=== PATIENT | male | born 1975 | race Two or more races ===

== ENCOUNTER 2018-06-02 14:34 | Emergency (ER) | payer OTHER ==
[~2018-06-02] VITALS: Ht 167.6 cm; Wt 79.4 kg
--- NOTE | 2018-06-02 14:34 | NUR ---
ARRIVAL PATIENT ARRIVED VIA EMS WITH COMPLAINTS OF SEVERE ABDOMINAL PAIN PT HAS HISTORY OF KIDNEY STONES AND STATES "IT FEELS LIKE THAT AGAIN" 18 GAUGE IV TO LEFT HAND INITIATED IN ROUTE BY EMS PT HAD 150MCG OF FENTYNL ON AMBULANCE PRIOR TO ARRIVAL PT AMBULATED TO BED AND PLACED ON MONITOR
[2018-06-02 14:42] VITALS: BP 157/92
[2018-06-02] MEDS ORDERED: ZOFRAN IV STA (14:53)
[2018-06-02] MEDS ORDERED: NS 1000ML 1,000 ML IV ONE (15:00)
--- NOTE | 2018-06-02 15:06 | ER.PDOC ---
General Chief Complaint: Abdomen Pain Stated Complaint: ABDOMINAL PAIN Time seen by MD: 14:55 Source: patient, EMS Exam Limitations: no limitations History of Present Illness Initial Comments Pt with abdominal pain starting suddenly this morning, nausea, vomiting, radiating to back, no urinary symptoms Timing/Duration: 4-6 hours Severity/Quality: severe, cramping, sharpness Radiation: epigastric, flank Associated Symptoms: nausea/vomiting Exacerbated by: movements Relieved By: nothing Vital Signs First Vital Signs Date Time Temp Pulse Resp B/P (MAP) Pulse Ox O2 Delivery O2 Flow Rate FiO2 06/02/18 14:38 98.1 62 18 98 Room Air 98.1 06/02/18 14:42 157/92 (113) Last Vital Signs Date Time Temp Pulse Resp B/P (MAP) Pulse Ox O2 Delivery O2 Flow Rate FiO2 06/02/18 14:42 98.7 60 18 157/92 (113) 98 Room Air 98.7 Social History Smoking: greater than 1 pack/day Drug Use: none Constitutional: no symptoms reported EENTM: no symptoms reported Respiratory: no symptoms reported Cardiovascular: no symptoms reported Gastrointestinal: see HPI Genitourinary: no symptoms reported Musculoskeletal: no symptoms reported Skin: no symptoms reported Psychiatric/Neurological: no symptoms reported Endocrine: no symptoms reported Hematologic/Lymphatic: no symptoms reported Physical Exam General Appearance: Anxious HEENT: PERRL/EOMI, Normal ENT Inspection, TMs Normal, Pharynx Normal Neck: Non-Tender, Full Range of Motion, Supple, Normal Inspection Respiratory: chest non-tender, lungs clear, normal breath sounds, no respiratory distress, no accessory muscle use Cardiovascular: Normal Peripheral Pulses, Regular Rate, Rhythm, No Edema, No Gallop, No JVD, No Murmur Gastrointestinal: Normal Bowel Sounds, No Organomegaly, No Pulsatile Mass, Tenderness (epigastrium) Back: CVA Tenderness (R), CVA Tenderness (L) Extremities: Normal Range of Motion, Non-Tender, Normal Inspection, No Pedal Edema, No Calf Tenderness, Normal Capillary Refill, Pelvis Stable Neurologic/Psychiatric: automatic maintainer II-XII NML as Tested, No Motor/Sensory Deficits, Alert, Normal Mood/Affect, Oriented x 3 Skin: Normal Color, Warm/Dry Lymphatic: No Adenopathy Results/Orders Results/Orders Administered Medications Medications (Trade) Dose Ordered Sig/Victorina Route PRN Reason Start Time Stop Time Status Last Admin Dose Admin Sodium Chloride 1,000 ml @ 1,200 mls/hr Q50M ONCE IV 06/02/18 15:00 06/02/18 15:49 06/02/18 14:56 Ondansetron HCl (Zofran) 4 mg STAT STAT IV 06/02/18 14:53 06/02/18 14:55 DC 06/02/18 14:56 Course Vitals & review Data Vital Sign - Last 24 Hours 06/02/18 06/02/18 06/02/18 14:38 14:38 14:42 Temp 98.1 98.7 98.7 98.1 98.7 98.7 Pulse 62 60 60 Resp 18 18 18 B/P (MAP) 157/92 (113) Pulse Ox 98 98 O2 Delivery Room Air Room Air Departure Time of Disposition: 16:10 Disposition: 02 XFER SHT-TRM HOSP Impression: Primary Impression: Gastric bleeding Additional Impression: Epigastric abdominal pain Condition: Stable Hospital Course stable Patient Instructions: Abdominal Pain Referrals: PCP,UNKNOWN (PCP) PRIMARY CARE PROVIDER Duration or Time Spent with Pa: 25 Problem Qualifiers PARI BRICEÑO MD Jun 02, 2018 15:06
[2018-06-02] MEDS ORDERED: ZOFRAN ONE (15:12)
[2018-06-02] MEDS ORDERED: PHENERGAN ONE (15:13)
[2018-06-02 15:15] LABS: BASOPHIL % 0.1 % (0.0-0.2); HEMOGLOBIN 15.7 g/dL (13.9-16.3); LYMPHOCYTES # 1.1 10^3/uL (1.0-4.8); LYMPHOCYTES % 6.8 % (24.0-44.0); MEAN CELL HGB CONCENTRATION 34.4 g/dL (33-37); MEAN CORP VOLUME 87.2 fL (78-100); MEAN PLATELET VOLUME 9.7 fL (7.8-11.0); MONOCYTES # 0.5 10^3/uL (0.3-0.8); MONOCYTES % 3.1 % (5.0-12.0); NEUTROPHIL # 14.8 10^3/uL (1.8-7.7); NEUTROPHILS % 89.8 % (41.0-85.0); RED CELL DISTRIBUTION WIDTH 13.1 % (11.5-14.5); WHITE BLOOD CELL 16.5 10^3/uL (4.5-11.0)
[2018-06-02] MEDS ORDERED: PHENERGAN IV STA (15:15)
[2018-06-02] MEDS ORDERED: PROTONIX IV IV ONE (15:16)
[2018-06-02] MEDS ORDERED: PROTONIX IV IV STA (15:18)
--- NOTE | 2018-06-02 15:20 | NUR ---
HEMATEMESIS NOTED DARK COFFEE COLORED VOMIT SPECIMEN COLLECTED AND TAKEN TO LAB
--- NOTE | 2018-06-02 15:25 | DIREP ---
PROCEDURE:CT ABDOMEN/PELVIS W/O CONTRAST COMPARISON:None. INDICATIONS:Abdominal pain TECHNIQUE:Axial images were created through the abdomen and pelvis without intravenous contrast material. No oral contrast was administered. Sagittal and coronal reconstructions were performed from source images. FINDINGS: LUNG BASES:Normal. No visible pulmonary or pleural disease. A small hiatal hernia is noted. LIVER:Normal. No significant liver lesions are identified. BILIARY:Normal. No visible dilatation or calcification. PANCREAS:Normal. No lesion, fluid collection, ductal dilatation, or atrophy. SPLEEN:Normal. No enlargement or focal lesion. ADRENALS:Normal. No mass or enlargement. URINARY TRACT:A 5 mm nonobstructing calculus is seen in the lower pole of the left kidney. The right kidney is normal. AORTA/VASCULAR:Normal. No aneurysm. RETROPERITONEUM:Normal. No mass or adenopathy. BOWEL/MESENTERY:Normal. There is no intestinal obstruction, free fluid, free air or mesenteric inflammatory changes. The appendix is normal. Evaluation of the bowel is limited without oral and intravenous contrast. ABDOMINAL WALL:Normal. No mass or hernia. PELVIC ORGANS:Normal. No visible mass. Pelvic organs appropriate for patient age. BONES:A Schmorl's node is incidentally noted in the superior endplate of L2. OTHER:Negative. CONCLUSION: 1. There is a 5 mm nonobstructing calculus in the lower pole of the left kidney. No other renal or ureteral calculi are seen. 2. No acute abnormalities are seen in the abdomen and pelvis. The appendix is normal. Dictated by: William Barrett M.D. On 06/02/2018 at 03:16 PM
[2018-06-02 15:27] LABS: CALCIUM 9.6 mg/dL (8.4-10.5); CARBON DIOXIDE 25.6 mmol/L (20.0-32)
[2018-06-02 15:29] LABS: BILIRUBIN,URINE NEGATIVE (NEGATIVE); UROBILINOGEN,URINE NORMAL (NEGATIVE)
[2018-06-02] MEDS ORDERED: MORPHINE SULFATE ONE (15:35)
[2018-06-02 15:54] LABS: APPEARANCE,URINE SLIGHTLY CLOUDY (CLEAR); UA COLOR AMBER (YELLOW)
[2018-06-02] MEDS ORDERED: MORPHINE SULFATE IV PRN (16:00)
--- NOTE | 2018-06-02 16:10 | NUR ---
YAZ BRICEÑO ON PHONE FOR PT CONSULT TO TRANSFER OR ADMIT
--- NOTE | 2018-06-02 16:21 | NUR ---
WALTER LEFT MESSAGE TO CALL [facility]
== END 2018-06-02 16:45 | disposition short-term general hospital (02) ==
LOC: ER 14:34
DX: K92.2 Gastrointestinal hemorrhage, unspecified (principal); F17.210 Nicotine dependence, cigarettes, uncomplicated
CPT/HCPCS: 36415; 74176; 80053; 81000; 82150; 82271; 83690; 85025; 85610; 85730; 87086; 96361; 96374; 96375; 99285; C9113; J2270; J2405; J2550